=== PATIENT | male | born 1985 | race Asian ===

== ENCOUNTER 2019-08-17 22:12 | Emergency (ER) | payer BC ==
[~2019-08-17] VITALS: Ht 185.4 cm; Wt 90.7 kg
[2019-08-17 22:21] VITALS: BP_SYST 115
--- NOTE | 2019-08-17 22:28 | NUR ---
Pt wheeled to bed 1 for evaluation
--- NOTE | 2019-08-17 22:29 | NUR ---
Placed on patient insurance clerk, blood pressure machine and pulse oximeter. To gown for exam. Side rails up. Report given to .
--- NOTE | 2019-08-17 22:35 | NUR ---
Pt BIB C/O headache and head pain S/P syncopal episode at home. Syncopal episode was witnessed by and reports a loss of consciousness for 20-30 seconds. Pt suffered a ground level fall, no hematoma, head, neck or back pain. Pt also reports nausea, diarrhea, and fever. Denies CP, SOB or any other symptoms. Will continue to monitor.
--- NOTE | 2019-08-17 23:02 | NUR ---
ER Dr. Rudolph at bedside examining patient.
[2019-08-17] MEDS ORDERED: ONDANSETRON HCL 4 MG/2 ML VIAL IVP ONE (23:15)
[2019-08-17] MEDS ORDERED: NS 1000 ML IV.SOLN IV ONE (23:15)
[2019-08-17 23:23] LABS: BASOPHILS % (AUTO) 0.2 % (0.0-2.0); EOSINOPHILS # (AUTO) 0.1 K/uL (0.0-0.4); EOSINOPHILS % (AUTO) 1.4 % (0.0-4.0); HEMATOCRIT 44.2 % (36-54); HEMOGLOBIN 15.4 g/dL (14.0-18.0); LYMPHOCYTES # (AUTO) 0.7 K/uL (1.0-5.5); LYMPHOCYTES % (AUTO) 8.8 % (20.5-51.5); MEAN CORPUSCULAR HEMOGLOBIN 31 pg (27-31); MEAN CORPUSCULAR HGB CONC 35 % (32-36); MEAN CORPUSCULAR VOLUME 89 fL (79.0-98.0); MONOCYTES # (AUTO) 0.6 K/uL (0.0-1.0); MONOCYTES % (AUTO) 7.3 % (1.7-9.3); NEUTROPHILS # (AUTO) 6.4 K/uL (1.8-7.7); NEUTROPHILS % (AUTO) 82.3 % (40.0-70.0); PLATELET COUNT (AUTO) 148 K/uL (130-430); RED BLOOD CELL COUNT(AUTO) 4.99 MIL/uL (4.2-6.2); RED CELL DISTRIBUTION WIDTH 12.9 % (9.0-15.0); WHITE BLOOD COUNT (AUTO) 7.8 K/uL (4.8-10.8)
[2019-08-17 23:25] LABS: CALCIUM 7.6 mg/dL (8.4-11.0); CREATININE 0.99 mg/dL (0.55-1.30); POTASSIUM 3.6 mmol/L (3.5-5.1)
--- NOTE | 2019-08-17 23:30 | NUR ---
Patient transported to radiology via gurney, accompanied by rad staff.
[2019-08-17 23:31] LABS: ALBUMIN 3.9 g/dL (3.4-4.8); TOTAL BILIRUBIN 0.6 mg/dL (0.0-1.0)
--- NOTE | 2019-08-17 23:38 | NUR ---
Pt returned in stable condition
[2019-08-18 00:27] LABS: BILIRUBIN,URINE NEGATIVE (NEGATIVE); BLOOD, URINE NEGATIVE (NEGATIVE); CLARITY/URINE CLEAR (CLEAR); COLOR,URINE YELLOW (YELLOW); GLUCOSE,URINE NEGATIVE (NEGATIVE); KETONES,URINE TRACE (NEGATIVE); LEUKOCYTE ESTERASE ,URINE NEGATIVE (NEGATIVE); NITRITE, URINE NEGATIVE (NEGATIVE); PH,URINE 6.5 (5.0-8.0); PROTEIN URINE NEGATIVE (NEGATIVE); UROBILINOGEN,URINE 0.2 (0.2-1.0)
--- NOTE | 2019-08-18 00:28 | NUR ---
Dr. Rudolph at bedside re-examining patient
[2019-08-18 00:35] LABS: BARBITURATE, URINE NEGATIVE (NEG <=200); BENZODIAZEPINE, URINE NEGATIVE (NEG <=150); CANNABINOID, URINE NEGATIVE (NEG <=50); COCAINE, URINE NEGATIVE (NEG <=150); METHAMPHETAMINES SCREEN,URINE NEGATIVE (NEG <=500); OPIATE, URINE NEGATIVE (NEG <=100); PHENCYCLIDINE SCREEN,URINE NEGATIVE (NEG <=25); UR TRICYCLIC ANTIDEPRESSANTS NEGATIVE (NEG <=300); URINE AMPHETAMINE NEGATIVE (NEG <=500); URINE METHADONE NEGATIVE (NEG <=200); URINE OXYCODONE SCREEN NEGATIVE (NEG <=100); URINE PROPOXYPHENE SCREEN NEGATIVE (NEG <=300)
--- NOTE | 2019-08-18 01:36 | NUR ---
Pt is resting in bed, no acute distress noted at this time. Will continue to monitor.
[2019-08-18 02:25] VITALS: BP_SYST 115
== END 2019-08-18 02:25 | disposition home or self-care (01) ==
LOC: SED 22:12
DX: R55 Syncope and collapse (principal); B34.9 Viral infection, unspecified
CPT/HCPCS: 36415; 70450; 80053; 80307; 81003; 82962; 83605; 84484; 85025; 86710; 87040; 93005; 96361; 96374; 99284; J2405; J7030